=== PATIENT | male | born 1945 | race Caucasian/White ===

== ENCOUNTER 2022-10-11 14:02 | Inpatient (IN) | payer MEDICARE ==
[2022-10-11 14:39] LABS: #Basophils 0.1 thou/uL (0.0-0.2); #Eosinphils 0.2 thou/uL (0.0-0.7); #Lymphocytes 1.6 thou/uL (1.20-3.40); #Monocytes 0.7 thou/uL (0.11-0.59); #Neutrophils 10.2 thou/uL (1.40-6.50); %Basophils 0.6 % (0.0-1.0); %Eosinophils 1.8 % (0.0-10.0); %Lymphocytes 12.2 % (21.0-51.0); %Monocytes 5.2 % (0.0-10.0); %Neutrophils 80.2 % (42.0-75.0); Hemoglobin 16.6 g/dL (14.0-18.0); Mean Corpuscular Hemoglobin 31.3 pg (27.0-31.0); Mean Platelet Volume 8.9 fL (7.4-10.4); Platelet Count 280 10x3/uL (130-400); RBC Distribution Width 12.9 % (11.5-14.5); White Blood Cell (WBC) Count 12.7 10x3/uL (4.8-10.8)
[2022-10-11 15:26] LABS: Acetaminophen Less than 10.0 mcg/mL (10.0-30.0); Alcohol Less than 10 mg/dL (Less than 10); Salicylate Less than 8.0 mg/dL (15.0-30.0)
[2022-10-11 15:37] LABS: PTT 27.1 sec (22.9-36.1)
[2022-10-11 15:50] LABS: INR-International Normal Ratio 1.1; Prothrombin Time 14.5 sec (12.0-14.7)
[2022-10-11 16:03] LABS: Albumin 3.8 g/dL (3.4-4.8)
[2022-10-11 16:04] LABS: Chloride 110 mmol/L (98-107); Potassium 4.2 mmol/L (3.5-5.1); Sodium 138 mmol/L (136-145)
[2022-10-11 16:05] LABS: Calcium 9.4 mg/dL (7.8-10.44)
[2022-10-11 16:06] LABS: Glucose 135 mg/dL (83-110); Protein, Total 6.8 g/dL (5.8-8.1)
[2022-10-11 16:07] LABS: Anion Gap 12 mmol/L (10-20); Carbon Dioxide 20 mmol/L (23-31)
[2022-10-11 16:08] LABS: Alkaline Phosphatase 135 U/L (40-110); Bilirubin, Total 0.5 mg/dL (0.2-1.2)
[2022-10-11 16:09] LABS: Calc. Creatinine Clearance 0 mL/min (70-130); Estimated GFR 74
[2022-10-11 16:10] LABS: BUN (Urea Nitrogen) 20 mg/dL (8.4-25.7)
[2022-10-11 16:11] LABS: ALT (SGPT) 17 U/L (8-55); AST (SGOT) 13 U/L (5-34)
[2022-10-11] MEDS ORDERED: Acetaminophen 325 MG TAB PO PRN (17:00)
[2022-10-11] MEDS ORDERED: Ondansetron PF 4 MG/2 ML Vial IVP PRN (17:00)
[2022-10-11] MEDS ORDERED: Ondansetron ODT 4 MG TAB SL PRN (17:00)
[2022-10-11] MEDS ORDERED: hydrALAZINE 20 MG/ML VIAL SLOW IVP PRN (17:39)
[2022-10-11] MEDS ORDERED: Communication Order-Pharmacy FS SCH (17:39)
[2022-10-11] MEDS ORDERED: Labetalol HCl 100 MG/20 ML VIAL SLOW IVP PRN (17:39)
[2022-10-11] MEDS ORDERED: Bisacodyl 10 MG SUPP PR PRN (17:39)
[2022-10-11] MEDS ORDERED: niCARdipine 25 MG in Sodium Chloride 0.9% 250 ML 250 ML IVPB PRN (17:39)
[2022-10-11] MEDS ORDERED: Docusate 100 MG CAP PO PRN (17:39)
[2022-10-11] MEDS: Sodium Chloride 0.9% 1,000 ML IV SCH (18:02)
[2022-10-11] MEDS: Atorvastatin Calcium 40 MG TAB PO SCH (19:39)
[2022-10-12] MEDS ORDERED: Gabapentin 300 MG CAP PO PRN ×3 (10:55→21:00)
[2022-10-12] MEDS: Sodium Chloride 0.9% 1,000 ML IV SCH ×2 (11:32→17:54)
[2022-10-12] MEDS ORDERED: Amlodipine 5 MG TAB PO SCH (21:00)
[2022-10-12] MEDS: Atorvastatin Calcium 40 MG TAB PO SCH (21:09)
[2022-10-12] MEDS: Metoprolol Tartrate 25 MG TAB PO SCH (21:09)
[2022-10-12] MEDS: Aspirin 300 MG Suppository PR SCH (21:09)
[2022-10-13] MEDS: Sodium Chloride 0.9% 1,000 ML IV SCH ×3 (02:40→17:10)
[2022-10-13 04:31] LABS: Cardiac Risk 3.9 (Less than 4.5)
[2022-10-13] MEDS: Cholecalciferol 1,000 UNITS (25 MCG) TAB PO SCH (09:55)
[2022-10-13] MEDS: Folic Acid 1 MG TAB PO SCH (09:55)
[2022-10-13] MEDS: Multivitamin W/ Minerals 1 TAB PO SCH (09:55)
[2022-10-13] MEDS: Cyanocobalamin (Vitamin B-12) 1,000 MCG TAB PO SCH (09:55)
[2022-10-13] MEDS: Metoprolol Tartrate 5 MG/5 ML VIAL IVP SCH ×2 (09:59→17:10)
[2022-10-13] MEDS: Metoprolol Tartrate 25 MG TAB PO SCH (10:04)
[2022-10-13] MEDS: Aspirin 300 MG Suppository PR SCH (20:27)
[2022-10-13] MEDS: Acetaminophen 650 MG Suppository PR PRN (23:31)
[2022-10-14] MEDS: Metoprolol Tartrate 5 MG/5 ML VIAL IVP SCH ×3 (01:40→17:27)
[2022-10-14] MEDS: Sodium Chloride 0.9% 1,000 ML IV SCH ×3 (01:41→18:59)
[2022-10-14] MEDS: Cholecalciferol 1,000 UNITS (25 MCG) TAB PO SCH (09:51)
[2022-10-14] MEDS: Cyanocobalamin (Vitamin B-12) 1,000 MCG TAB PO SCH (09:51)
[2022-10-14] MEDS: Folic Acid 1 MG TAB PO SCH (09:52)
[2022-10-14] MEDS: Acetaminophen 650 MG Suppository PR PRN (17:55)
[2022-10-14] MEDS: Aspirin 300 MG Suppository PR SCH (20:55)
[2022-10-15] MEDS: Metoprolol Tartrate 5 MG/5 ML VIAL IVP SCH ×2 (02:13→09:01)
[2022-10-15] MEDS: Sodium Chloride 0.9% 1,000 ML IV SCH ×2 (03:32→12:31)
[2022-10-15 06:04] LABS: Band 1 % (5-11); Eosinophils 1 % (0-10); Hemoglobin 14.6 g/dL (14.0-18.0); Lymphocytes 14 % (21-51); MDiff Complete? YES; Macrocytosis MODERATE=16-30 cells (100X) (0-5/hpf); Mean Corpuscular HGB CONC 33.5 g/dL (32.0-36.0); Mean Corpuscular Hemoglobin 33.7 pg (27.0-31.0); Mean Platelet Volume 8.9 fL (7.4-10.4); Monocytes 22 % (0-10); Neutrophil 62 % (42-75); Ovalocytes SLIGHT = 2-5 cells (100X) (0-1/hpf); Platelet Count 252 10x3/uL (130-400); Platelet Morphology Comment Appears Adequate; RBC Distribution Width 12.6 % (11.5-14.5); Red Blood Cell (RBC) Count 4.34 mill/uL (4.70-6.10); White Blood Cell (WBC) Count 19.8 10x3/uL (4.8-10.8)
[2022-10-15 06:09] LABS: Anion Gap 13 mmol/L (10-20); BUN (Urea Nitrogen) 12 mg/dL (8.4-25.7); Calc. Creatinine Clearance 132 mL/min (70-130); Calcium 8.3 mg/dL (7.8-10.44); Carbon Dioxide 18 mmol/L (23-31); Chloride 108 mmol/L (98-107); Estimated GFR 92; Glucose 98 mg/dL (83-110); Potassium 3.5 mmol/L (3.5-5.1); Sodium 135 mmol/L (136-145)
[2022-10-15] MEDS: Folic Acid 1 MG TAB PO SCH (08:55)
[2022-10-15] MEDS: Cyanocobalamin (Vitamin B-12) 1,000 MCG TAB PO SCH (09:00)
[2022-10-15] MEDS: Cholecalciferol 1,000 UNITS (25 MCG) TAB PO SCH (09:00)
[2022-10-15] MEDS: Lansoprazole 15 MG/5 ML (BATCHED)UDCUP PER TUBE SCH ×2 (09:37→21:53)
[2022-10-15] MEDS ORDERED: Piperacillin/Tazobactam 3.375 GM in Sodium Chloride 0.9% 100 ML IVPB SCH (12:15)
[2022-10-15] MEDS ORDERED: Lactated Ringer's 1,000 ML IV SCH (14:15)
[2022-10-15] MEDS: Piperacillin/Tazobactam 3.375 GM in Sodium Chloride 0.9% 100 ML IVPB SCH (16:51)
[2022-10-15 17:43] LABS: Bilirubin Negative (Negative); Blood, Urine 2+ (Negative); Clarity Clear (Clear); Glucose, Urine (Dipstick) Normal (Negative); Ketone, Urine Negative (Negative); Leukocyte 25 Leu/uL (Negative); Nitrite Negative (Negative); Protein, Urine (Dipstick) Negative (Neg-Trace); Squamous Epithelial None Seen HPF (0-3)
[2022-10-15 17:46] LABS: Bacteria/HPF 1+ HPF (None Seen)
[2022-10-15] MEDS: Atorvastatin Calcium 40 MG TAB PO SCH (21:54)
[2022-10-15] MEDS: Amlodipine 5 MG TAB PO SCH (21:54)
[2022-10-15] MEDS: Metoprolol Tartrate 25 MG TAB PO SCH (21:54)
[2022-10-16] MEDS: Piperacillin/Tazobactam 3.375 GM in Sodium Chloride 0.9% 100 ML IVPB SCH ×3 (00:54→16:04)
[2022-10-16 06:20] LABS: Anion Gap 11 mmol/L (10-20); BUN (Urea Nitrogen) 13 mg/dL (8.4-25.7); Calc. Creatinine Clearance 124 mL/min (70-130); Calcium 8.5 mg/dL (7.8-10.44); Carbon Dioxide 21 mmol/L (23-31); Chloride 107 mmol/L (98-107); Estimated GFR 90; Glucose 104 mg/dL (83-110); Potassium 3.3 mmol/L (3.5-5.1); Sodium 136 mmol/L (136-145)
[2022-10-16 06:42] LABS: Band 4 % (5-11); Eosinophils 1 % (0-10); Hemoglobin 14.6 g/dL (14.0-18.0); Lymphocytes 15 % (21-51); MDiff Complete? YES; Macrocytosis SLIGHT = 6-15 cells (100X) (0-5/hpf); Mean Corpuscular HGB CONC 33.3 g/dL (32.0-36.0); Mean Corpuscular Hemoglobin 33.6 pg (27.0-31.0); Monocytes 21 % (0-10); Neutrophil 59 % (42-75); Platelet Count 282 10x3/uL (130-400); Platelet Morphology Comment Appears Adequate; RBC Distribution Width 12.8 % (11.5-14.5); Red Blood Cell (RBC) Count 4.36 mill/uL (4.70-6.10); White Blood Cell (WBC) Count 16.5 10x3/uL (4.8-10.8)
[2022-10-16] MEDS ORDERED: Potassium Chloride 20 MEQ TAB PO SCH (08:30)
[2022-10-16] MEDS: Lansoprazole 15 MG/5 ML (BATCHED)UDCUP PER TUBE SCH ×2 (09:21→20:36)
[2022-10-16] MEDS: Aspirin Chewable 81 MG TAB PO SCH (09:21)
[2022-10-16] MEDS: Cyanocobalamin (Vitamin B-12) 1,000 MCG TAB PO SCH (09:21)
[2022-10-16] MEDS: Cholecalciferol 1,000 UNITS (25 MCG) TAB PO SCH (09:21)
[2022-10-16] MEDS: Folic Acid 1 MG TAB PO SCH (09:22)
[2022-10-16] MEDS: Metoprolol Tartrate 25 MG TAB PO SCH ×2 (09:22→20:37)
[2022-10-16] MEDS: Acetaminophen 650 MG Suppository PR PRN (09:23)
[2022-10-16] MEDS ORDERED: Acetaminophen 325 MG/10.15 ML UDCUP PO PRN (16:11)
[2022-10-16] MEDS: Acetaminophen 650 MG/20.3 ML UDCUP PO PRN (17:45)
[2022-10-16] MEDS: Atorvastatin Calcium 40 MG TAB PO SCH (20:37)
[2022-10-16] MEDS: Amlodipine 5 MG TAB PO SCH (20:37)
[2022-10-17] MEDS: Piperacillin/Tazobactam 3.375 GM in Sodium Chloride 0.9% 100 ML IVPB SCH ×3 (00:58→15:25)
[2022-10-17 06:24] VITALS: BMI 32.7
[2022-10-17] MEDS: Folic Acid 1 MG TAB PO SCH (08:41)
[2022-10-17] MEDS: Metoprolol Tartrate 25 MG TAB PO SCH ×2 (08:42→21:11)
[2022-10-17] MEDS: Cyanocobalamin (Vitamin B-12) 1,000 MCG TAB PO SCH (08:42)
[2022-10-17] MEDS: Lansoprazole 15 MG/5 ML (BATCHED)UDCUP PER TUBE SCH ×2 (08:43→21:11)
[2022-10-17] MEDS: Aspirin Chewable 81 MG TAB PO SCH (08:43)
[2022-10-17] MEDS: Cholecalciferol 1,000 UNITS (25 MCG) TAB PO SCH (08:44)
[2022-10-17] MEDS ORDERED: Potassium Chloride 20 MEQ TAB PO SCH (09:15)
[2022-10-17 10:02] LABS: #Basophils 0.1 thou/uL (0.0-0.2); #Eosinphils 0.2 thou/uL (0.0-0.7); #Lymphocytes 1.6 thou/uL (1.20-3.40); #Monocytes 1.7 thou/uL (0.11-0.59); #Neutrophils 11.8 thou/uL (1.40-6.50); %Basophils 0.4 % (0.0-1.0); %Eosinophils 1.2 % (0.0-10.0); %Lymphocytes 10.3 % (21.0-51.0); %Monocytes 10.9 % (0.0-10.0); %Neutrophils 77.2 % (42.0-75.0); Mean Corpuscular HGB CONC 33.5 g/dL (32.0-36.0); Mean Corpuscular Hemoglobin 33.9 pg (27.0-31.0); Mean Platelet Volume 8.9 fL (7.4-10.4); Platelet Count 299 10x3/uL (130-400); RBC Distribution Width 12.9 % (11.5-14.5); Red Blood Cell (RBC) Count 4.72 mill/uL (4.70-6.10); White Blood Cell (WBC) Count 15.3 10x3/uL (4.8-10.8)
[2022-10-17 10:24] LABS: Anion Gap 14 mmol/L (10-20); BUN (Urea Nitrogen) 18 mg/dL (8.4-25.7); Calc. Creatinine Clearance 131 mL/min (70-130); Calcium 8.8 mg/dL (7.8-10.44); Carbon Dioxide 20 mmol/L (23-31); Chloride 107 mmol/L (98-107); Estimated GFR 91; Glucose 160 mg/dL (83-110); Potassium 3.8 mmol/L (3.5-5.1); Sodium 137 mmol/L (136-145)
[2022-10-17] MEDS: tiZANidine HCl 4 MG TAB PO PRN ×2 (12:59→21:11)
[2022-10-17] MEDS: Amlodipine 5 MG TAB PO SCH (21:10)
[2022-10-17] MEDS: Atorvastatin Calcium 40 MG TAB PO SCH (21:10)
[2022-10-18] MEDS: Piperacillin/Tazobactam 3.375 GM in Sodium Chloride 0.9% 100 ML IVPB SCH ×2 (00:21→09:34)
[2022-10-18 05:49] LABS: Anion Gap 13 mmol/L (10-20); BUN (Urea Nitrogen) 18 mg/dL (8.4-25.7); Calc. Creatinine Clearance 128 mL/min (70-130); Calcium 8.5 mg/dL (7.8-10.44); Carbon Dioxide 21 mmol/L (23-31); Chloride 107 mmol/L (98-107); Estimated GFR 90; Glucose 112 mg/dL (83-110); Sodium 137 mmol/L (136-145)
[2022-10-18 05:50] LABS: Band 2 % (5-11); Hemoglobin 14.9 g/dL (14.0-18.0); Lymphocytes 25 % (21-51); MDiff Complete? YES; Macrocytosis SLIGHT = 6-15 cells (100X) (0-5/hpf); Mean Corpuscular Hemoglobin 33.4 pg (27.0-31.0); Mean Platelet Volume 8.8 fL (7.4-10.4); Monocytes 9 % (0-10); Neutrophil 62 % (42-75); Platelet Count 319 10x3/uL (130-400); Platelet Morphology Comment Appears Adequate; Reactive Lymphocytes 2 % (0-10); Red Blood Cell (RBC) Count 4.47 mill/uL (4.70-6.10); White Blood Cell (WBC) Count 14.6 10x3/uL (4.8-10.8)
[2022-10-18 07:51] VITALS: TEMP 97.8
[2022-10-18] MEDS: Acetaminophen 650 MG/20.3 ML UDCUP PO PRN ×2 (09:33→15:44)
[2022-10-18] MEDS: Lansoprazole 15 MG/5 ML (BATCHED)UDCUP PER TUBE SCH (09:33)
[2022-10-18] MEDS: Folic Acid 1 MG TAB PO SCH (09:35)
[2022-10-18] MEDS: Cyanocobalamin (Vitamin B-12) 1,000 MCG TAB PO SCH (09:35)
[2022-10-18] MEDS: Cholecalciferol 1,000 UNITS (25 MCG) TAB PO SCH (09:35)
[2022-10-18] MEDS: Metoprolol Tartrate 25 MG TAB PO SCH (09:35)
[2022-10-18] MEDS: Aspirin Chewable 81 MG TAB PO SCH (09:35)
[2022-10-18] MEDS: Multivitamin W/ Minerals 1 TAB PO SCH (09:35)
[2022-10-18] MEDS: tiZANidine HCl 4 MG TAB PO PRN (10:32)
[2022-10-18 12:12] VITALS: BP 121/67
== END 2022-10-18 16:51 | DRG 65 ==
LOC: ERS 14:02 → CCU 16:49 → NEURO 10-13 15:51
PROVIDERS: ADMIT Emergency Medicine; ATTEND Internal Medicine
DX: I63.9 Cerebral infarction, unspecified (principal); G81.91 Hemiplegia, unspecified affecting right dominant side; N39.0 Urinary tract infection, site not specified; K21.9 Gastro-esophageal reflux disease without esophagitis; I10 Essential (primary) hypertension; I25.10 Atherosclerotic heart disease of native coronary artery without angina pectoris; J32.0 Chronic maxillary sinusitis; R13.12 Dysphagia, oropharyngeal phase; D72.829 Elevated white blood cell count, unspecified; E87.6 Hypokalemia; I08.1 Rheumatic disorders of both mitral and tricuspid valves; M62.838 Other muscle spasm; Z92.82 Status post administration of tPA (rtPA) in a different facility within the last 24 hours prior to admission to current facility; Z91.013 Allergy to seafood; Z88.8 Allergy status to other drugs, medicaments and biological substances; Z79.82 Long term (current) use of aspirin; Z79.899 Other long term (current) drug therapy; Z95.1 Presence of aortocoronary bypass graft; Z98.890 Other specified postprocedural states; Z87.891 Personal history of nicotine dependence
CPT/HCPCS: 36415; 70450; 70551; 71045; 74018; 80048; 80053; 80061; 80307; 81001; 83605; 83880; 84484; 85025; 85610; 85730; 86140; 86850; 86900; 86901; 87040; 87086; 93005; 93306; 93880; J1650; J2543; J3490; J7050